=== PATIENT | male | born 2000 | race Two or more races ===

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

== ENCOUNTER 2021-08-21 13:04 | Inpatient (IN) ==
[2021-08-21 13:46] LABS: ABS Lymphocytes 2.1 10^3/ul (1.0-4.8); ABS Monocytes 0.3 10^3/ul (0-0.8); ABS Neutrophils 2.8 10^3/ul (1.5-7.7); Eosinophil % 0.6 %; Hematocrit 41 % (42-52); Hemoglobin 14.1 g/dL (14.0-18.0); Lymphocyte % 39.2 %; Mean Corpuscular HGB Conc 35 g/dL (31-36); Mean Corpuscular Hemoglobin 29 pg (27-31); Mean Corpuscular Volume 83 fL (80-94); Mean Platelet Volume 7.5 fL (7.4-10.4); Nucleated Red Blood Cells % 0.1; Platelet Count 193 10^3/uL (150-450); Red Blood Count 4.91 10^6 /uL (4.18-5.48); Red Cell Distribution Width 13 % (10-15); White Blood Count 5.2 10^3/uL (3.5-10.8)
[2021-08-21 13:49] LABS: Urine Appearance Cloudy; Urine Bilirubin Negative (Negative); Urine Blood Negative (Negative); Urine Color Yellow; Urine Glucose Negative (Negative); Urine Ketones Negative (Negative); Urine Nitrite Negative (Negative); Urine Protein Negative (Negative); Urine Specific Gravity 1.017 (1.002-1.030); Urine Urobilinogen Negative (Negative)
[2021-08-21 14:03] LABS: ALT 42 U/L (7-52); AST 20 U/L (13-39); Albumin 4.4 g/dL (3.2-5.2); Albumin/Globulin Ratio 1.7 (1-3); Alkaline Phosphatase 57 U/L (35-149); Anion Gap 8 mmol/L (2-11); Blood Urea Nitrogen 16 mg/dL (6-24); CO2 Carbon Dioxide 26 mmol/L (22-32); Calcium 9.4 mg/dL (8.6-10.3); Chloride 103 mmol/L (101-111); Globulin 2.6 g/dL (2-4); Glucose 118 mg/dL (70-100); Sodium 137 mmol/L (135-145); eGFR CKD-EPI 122.2 (>60)
[2021-08-21 14:10] LABS: Urine Benzodiazepine Screen None Detected (None Detect); Urine Cannabinoids Screen None Detected (None Detect); Urine Opiates Screen None Detected (None Detect)
[2021-08-21 14:16] LABS: Acetaminophen < 15 mcg/mL; Alcohol, S < 13 mg/dL (<13); Salicylate < 2.50 mg/dL (<30)
[2021-08-21 14:30] LABS: TSH Ultra Thyroid Stim Horm 1.79 mcIU/mL (0.34-5.60)
[2021-08-21] MEDS ORDERED: Al Hydrox/Mg Hydrox/Simet LIQ 30 ML UDC PO PRN (23:57)
[2021-08-22] MEDS: Vitamin THERAPEUTIC TAB PO SCH (09:22)
[2021-08-22 10:47] LABS: Vitamin B12 439 pg/mL (180-914)
[2021-08-22] MEDS ORDERED: risperiDONE-M 1 mg Oradis TAB PO PRN (10:47)
[2021-08-22 10:50] LABS: Vitamin D Total 25(OH) 27.7 ng/mL (20-50)
[2021-08-23] MEDS: Vitamin THERAPEUTIC TAB PO SCH (07:26)
[2021-08-23 08:12] LABS: HDL Cholesterol 54.2 mg/dL
[2021-08-23] MEDS: risperiDONE-M 1 mg Oradis TAB PO SCH (22:07)
[2021-08-24] MEDS: Vitamin THERAPEUTIC TAB PO SCH (10:13)
[2021-08-24] MEDS: risperiDONE-M 1 mg Oradis TAB PO SCH (20:49)
[2021-08-25] MEDS: Vitamin THERAPEUTIC TAB PO SCH (12:32)
[2021-08-26] MEDS: Vitamin THERAPEUTIC TAB PO SCH (08:18)
[2021-08-26] MEDS ORDERED: Flu vaccine *QUAD* 2021-22* 0.5 ML SYRINGE IM ONE (09:00)
[2021-08-27] MEDS: Vitamin THERAPEUTIC TAB PO SCH (08:21)
[2021-08-27 09:04] VITALS: BP 115/79
== END 2021-08-27 14:14 | disposition home or self-care (01) | DRG 757 ==
LOC: ED 13:04 → BSU 19:15
PROVIDERS: ADMIT Psychiatry & Neurology Psychiatry; ATTEND Psychiatry & Neurology Psychiatry